=== PATIENT | male | born 1945 | race Caucasian/White ===

== ENCOUNTER 2016-08-29 21:36 | Emergency (ER) | payer OTHER ==
[~2016-08-29] VITALS: Ht 172.7 cm; Wt 88.9 kg
[2016-08-29 21:42] VITALS: BP_SYST 156
[2016-08-29] MEDS ORDERED: ONDANSETRON 4 MG ODT TAB PO ONE (22:15)
[2016-08-29] MEDS ORDERED: IBUPROFEN 800 MG TABLET PO ONE (22:15)
[2016-08-29] MEDS ORDERED: ONDANSETRON HCL 4 MG/2 ML VIAL IM ONE (23:15)
[2016-08-29 23:30] VITALS: BP_SYST 141
== END 2016-08-29 23:30 | disposition home or self-care (01) ==
LOC: SED 21:36
DX: S09.90XA Unspecified injury of head, initial encounter (principal); I10 Essential (primary) hypertension; E11.9 Type 2 diabetes mellitus without complications; W22.8XXA Striking against or struck by other objects, initial encounter; Y93.89 Activity, other specified; Y92.89 Other specified places as the place of occurrence of the external cause; Y99.8 Other external cause status
CPT/HCPCS: 70450; 96372; 99284; J2405; Q0162